=== PATIENT | female | born 1970 | race African-American/Black ===

== ENCOUNTER 2021-12-26 15:54 | Emergency (ER) | payer OTHER ==
[~2021-12-26] VITALS: Ht 167.6 cm; Wt 74.0 kg
[2021-12-26 15:58] VITALS: BP 104/71
[2021-12-26] MEDS ORDERED: SODIUM CHLORIDE 0.9% 1,000 ML IV ONE (16:15)
[2021-12-26 18:08] LABS: BASOPHILS % 0.6 % (0.0-2.0); EOSINOPHILS % 0.4 % (0.0-5.0); HEMATOCRIT. 36.7 % (36.0-48.0); HEMOGLOBIN. 12.2 g/dL (12.0-16.0); LYMPHOCYTES % 10.1 % (20.0-50.0); MEAN CORPUSCULAR HEMOGLOBIN 30.4 pg (28.0-32.0); MEAN CORPUSCULAR VOLUME 91.7 fL (81.0-99.0); MEAN PLATELET VOLUME 7.9 fl (7.4-10.4); NEUTROPHILS % 82.9 % (40.0-76.0); PLATELET 253 x1000/uL (130-400); RED CELL DISTRIBUTION WIDTH 13.8 % (11.6-14.6)
[2021-12-26 18:12] LABS: CHLORIDE 107 mEq/L (98-107)
== END 2021-12-26 21:06 | disposition home or self-care (01) ==
LOC: ER 15:54
DX: R55 Syncope and collapse (principal); I95.89 Other hypotension
CPT/HCPCS: 36415; 71045; 80053; 85025; 93005; 99285; J7030